=== PATIENT | female | born 1985 | race Caucasian/White ===

== ENCOUNTER 2017-01-07 15:49 | Emergency (ER) | payer OTHER ==
[~2017-01-07] VITALS: Ht 154.9 cm; Wt 61.5 kg
[~2017-01-07 15:49] MED LIST: CEPH-460 PO; IBUP800T23 PO
[2017-01-07 15:51] VITALS: BP 125/86; PULSE 110; RESP 18; TEMP 98.5; O2SAT 98
== END 2017-01-07 16:20 | disposition left against medical advice (07) ==
LOC: NED 15:49
DX: Z03.89 Encounter for observation for other suspected diseases and conditions ruled out (principal)
CPT/HCPCS: 99281

== ENCOUNTER 2017-01-13 23:32 | Emergency (ER) | payer OTHER ==
[2017-01-13 23:55] VITALS: BP 116/76; PULSE 104; RESP 18; TEMP 97.8; O2SAT 98
[2017-01-14] MEDS ORDERED: SODIUM CHLOR 0.9% 1000 ML INJ 1,000 ML IV ONE
[2017-01-14] MEDS ORDERED: HALOPERIDOL LACTATE 5 MG/ML AMP IV ONE (00:15)
[2017-01-14] MEDS ORDERED: LORazepam 2 MG/ML VIAL IV PUSH ONE ×2 (00:15)
[2017-01-14] MEDS ORDERED: diphenhydrAMINE HCL 50 MG/ML VIAL IV PUSH ONE (00:15)
--- NOTE | 2017-01-14 00:16 | PD ---
HPI Chief Complaint: Psychiatric Symptoms Time Seen by Provider: 23:57 Travel History International Travel<30 days: No Contact w/Intl Traveler<30days: No Traveled to known affect area: No History of Present Illness HPI Patient is a 31-year-old female who is brought to the emergency room by police officers after she made suicidal comments. As per police officers, patient was found heavily intoxicated at her home making suicidal threats, Garay act was placed by police officers. Patient is intoxicated in the emergency room, denies active SI or HI. PFSH Past Medical History Medical History: Denies Significant Hx Bipolar Disorder: Yes Diabetes: No Diminished Hearing: No Musculoskeletal: Yes (MILD SCOLIOSIS) Immunizations Current: Yes Migraines: Yes (TAKES EXCEDRIN FOR THEM) ?: Unknown LMP: "TWO WEEKS AGO" : 3 Para: 1 Miscarriage: 1 Past Surgical History Section: Yes Tonsillectomy: Yes Social History Alcohol Use: Yes (OCC) Tobacco Use: Yes (/2 PPD) Substance Use: Yes (MARIJUANA) Allergies-Medications (Allergen,Severity, Reaction): Coded Allergies: No Known Allergies (Verified , 01/13/17) Reported Meds & Prescriptions Reported Meds & Active Scripts Active No Active Prescriptions or Reported Medications Review of Systems ROS Limitations: Intoxication General / Constitutional: No: Fever Eyes: No: Visual changes HENT: No: Headaches Cardiovascular: No: Chest Pain or Discomfort Respiratory: No: Shortness of Breath Gastrointestinal: No: Abdominal Pain Genitourinary: No: Dysuria Musculoskeletal: No: Pain Skin: No Rash Neurologic: No: Weakness Psychiatric: Positive: Depression, Suicidal Ideations, Substance Abuse Endocrine: No: Polydipsia Hematologic/Lymphatic: No: Easy Bruising Physical Exam Narrative GENERAL: No acute distress, nontoxic SKIN: Warm and dry. HEAD: Atraumatic. Normocephalic. EYES: Pupils equal and round. No injection or drainage. NECK: Trachea midline. No JVD. CARDIOVASCULAR: Regular rate and rhythm. No murmur appreciated. RESPIRATORY: No accessory muscle use. Clear to auscultation. Breath sounds equal bilaterally. GASTROINTESTINAL: Abdomen soft, non-tender, nondistended. Hepatic and splenic margins not palpable. MUSCULOSKELETAL: No obvious deformities. No clubbing. No cyanosis. No edema. NEUROLOGICAL: Awake and alert. Normal speech. PSYCHIATRIC: Patient anxious, suicidal, patient combative on exam Data Data Last Documented VS Vital Signs Date Time Temp Pulse Resp B/P Pulse Ox O2 Delivery O2 Flow Rate FiO2 01/13/17 23:55 97.8 104 18 116/76 98 Orders Complete Blood Count With Diff (01/13/17 23:57) Comprehensive Metabolic Panel (01/13/17 23:57) Ed Urine Pregnancytest Poc (01/13/17 23:57) Iv Access Insert/Monitor (01/13/17 23:57) Psych Screen (01/13/17 23:57) Drug Screen, Random Urine (01/13/17 23:57) Alcohol (Ethanol) (01/13/17 23:57) Lorazepam Inj (Ativan Inj) (01/14/17 00:00) Sodium Chlor 0.9% 1000 Ml Inj (Ns 1000 M (01/14/17 00:00) Haloperidol Inj (Haldol Inj) (01/14/17 00:15) Lorazepam Inj (Ativan Inj) (01/14/17 00:15) Diphenhydramine Inj (Benadryl Inj) (01/14/17 00:15) Beta Hcg (Quant/Titer) (01/14/17 00:15) Labs Laboratory Tests Test 01/14/17 00:03 White Blood Count 9.5 TH/MM3 Red Blood Count 4.39 MIL/MM3 Hemoglobin 15.1 GM/DL Hematocrit 42.6 % Mean Corpuscular Volume 97.1 FL Mean Corpuscular Hemoglobin 34.5 PG Mean Corpuscular Hemoglobin 35.5 % Concent Red Cell Distribution Width 13.4 % Platelet Count 279 TH/MM3 Mean Platelet Volume 8.6 FL Neutrophils (%) (Auto) 52.0 % Lymphocytes (%) (Auto) 38.3 % Monocytes (%) (Auto) 6.3 % Eosinophils (%) (Auto) 2.4 % Basophils (%) (Auto) 1.0 % Neutrophils # (Auto) 4.9 TH/MM3 Lymphocytes # (Auto) 3.6 TH/MM3 Monocytes # (Auto) 0.6 TH/MM3 Eosinophils # (Auto) 0.2 TH/MM3 Basophils # (Auto) 0.1 TH/MM3 CBC Comment DIFF FINAL Differential Comment Sodium Level 144 MEQ/L Potassium Level 3.7 MEQ/L Chloride Level 107 MEQ/L Carbon Dioxide Level 23.9 MEQ/L Anion Gap 13 MEQ/L Blood Urea Nitrogen 8 MG/DL Creatinine 0.86 MG/DL Estimat Glomerular Filtration 76 ML/MIN Rate Random Glucose 96 MG/DL Calcium Level 8.8 MG/DL Aspartate Amino Transf 15 U/L (AST/SGOT) Albumin 4.2 GM/DL Urine Opiates Screen NEG Urine Barbiturates Screen NEG Urine Amphetamines Screen NEG Urine Benzodiazepines Screen NEG Urine Cocaine Screen NEG Urine Cannabinoids Screen POS Ethyl Alcohol Level 261 MG/DL MDM Medical Decision Making Medical Screen Exam Complete: Yes Emergency Medical Condition: Yes Interpretation(s) Vital Signs Date Time Temp Pulse Resp B/P Pulse Ox O2 Delivery O2 Flow Rate FiO2 01/13/17 23:55 97.8 104 18 116/76 98 Differential Diagnosis Alcohol intoxication, drug abuse, suicidal idealizations Narrative Course Patient is a 31-year-old female who presents to emergency room Garay act was initiated by police officers. As per police officers, patient made the suicidal comment tonight, reports the patient is heavily intoxicated. Psychiatric screening labs ordered for patient. Patient combative while in the emergency room, patient required sedation with IV medications. Patient responded to IV medications and is currently sleeping. Patient is intoxicated, patient cleared once she is awake and sober Diagnosis Primary Impression: Substance abuse Additional Impressions: Alcohol abuse Suicidal ideation Patient Instructions: General Instructions Additional Instructions: Please stop using drugs Please follow-up with your primary care doctor Return to emergency room as needed Scripts No Active Prescriptions or Reported Meds Farhana Forde DO Jan 14, 2017 00:15
[2017-01-14 00:19] LABS: AUTOMATED NEUTROPHIL # 4.9 TH/MM3 (1.8-7.7); BASOPHIL # 0.1 TH/MM3 (0-0.2); EOSINOPHIL # 0.2 TH/MM3 (0-0.4); EOSINOPHIL % 2.4 % (0.0-4.0); HEMATOCRIT 42.6 % (35.0-46.0); HEMO FLAGS DIFF FINAL; LYMPH % 38.3 % (9.0-44.0); LYMPHOCYTE # 3.6 TH/MM3 (1.0-4.8); MEAN CELL VOLUME 97.1 FL (80.0-100.0); MEAN CORPUSCULAR HEMOGLOBIN 34.5 PG (27.0-34.0); MEAN CORPUSCULAR HGB CONC 35.5 % (32.0-36.0); MONO % 6.3 % (0.0-8.0); PLATELET COUNT 279 TH/MM3 (150-450); RED BLOOD COUNT 4.39 MIL/MM3 (4.00-5.30); RED CELL DISTRIBUTION WIDTH 13.4 % (11.6-17.2); WHITE BLOOD COUNT 9.5 TH/MM3 (4.0-11.0)
[2017-01-14 00:40] LABS: AMPHETAMINE, URINE NEG (NEG); BARBITURATES, URINE NEG (NEG); COCAINE, URINE NEG (NEG)
[2017-01-14 00:42] LABS: ANION GAP 13 MEQ/L (5-15); AST (GOT) 15 U/L (15-37); BICARBONATE 23.9 MEQ/L (21.0-32.0); BLOOD UREA NITROGEN 8 MG/DL (7-18); CHLORIDE 107 MEQ/L (98-107); GLOMERULAR FILTRATION RATE 76 ML/MIN (>89); POTASSIUM 3.7 MEQ/L (3.5-5.1); SODIUM (NA) 144 MEQ/L (136-145)
[2017-01-14 00:45] LABS: ALKALINE PHOSPHATASE 79 U/L (45-117); ALT (GPT) 22 U/L (10-53); TOTAL BILIRUBIN ADULT 0.2 MG/DL (0.2-1.0)
[2017-01-14 01:14] LABS: BETA HCG QUANT LESS THAN 1 MIU/ML (0-5)
[2017-01-14 06:20] VITALS: BP 119/82; PULSE 80; RESP 17; O2SAT 98
[2017-01-14 10:53] VITALS: BP 94/61; PULSE 77; RESP 18; O2SAT 97
== END 2017-01-14 14:26 ==
LOC: NEPA 23:32 → NEPJ 01-14 14:26
DX: F19.10 Other psychoactive substance abuse, uncomplicated (principal); F10.129 Alcohol abuse with intoxication, unspecified; R45.851 Suicidal ideations; F12.10 Cannabis abuse, uncomplicated; F17.210 Nicotine dependence, cigarettes, uncomplicated
CPT/HCPCS: 80053; 80307; 84702; 84703; 85025; 96374; 96375; 99284; J1200; J1630; J2060; J7030

== ENCOUNTER 2017-06-30 00:22 | Emergency (ER) | payer OTHER ==
[~2017-06-30] VITALS: Ht 154.9 cm; Wt 62.1 kg
[2017-06-30 00:28] VITALS: BP 126/67; PULSE 97; RESP 16; TEMP 98.5; O2SAT 99
[2017-06-30] MEDS ORDERED: TOBR.3%O LEFT EYE (21:30)
== END 2017-06-30 01:38 | disposition left against medical advice (07) ==
LOC: PHED 00:22
DX: H57.12 Ocular pain, left eye (principal)
CPT/HCPCS: 99281

== ENCOUNTER 2017-06-30 20:34 | Emergency (ER) | payer SELFPAY ==
[~2017-06-30] VITALS: Ht 165.1 cm; Wt 61.4 kg
[2017-06-30 20:41] VITALS: BP 123/65; PULSE 97; RESP 16; TEMP 98.7; O2SAT 98
[2017-06-30 21:09] VITALS: BP 123/87; PULSE 91; RESP 16; O2SAT 100
[2017-06-30] MEDS ORDERED: TOBRAMYCIN SULFATE 0.3% OPTH OINT 3.5 GM TUBE EACH EYE ONE ×2 (21:30→21:45)
[2017-06-30] MEDS ORDERED: TOBR.3%O LEFT EYE (21:30)
--- NOTE | 2017-06-30 21:32 | PD ---
HPI Chief Complaint: Eye Problems/Injury Time Seen by Provider: 21:24 Travel History International Travel<30 days: No Contact w/Intl Traveler<30days: No Traveled to known affect area: No History of Present Illness HPI The patient is a 32-year-old female that complains of redness in the left eye that started 3 days ago and redness in the right eye that started last night and a slight burning/itching discomfort in both eyes. She denies any trauma, exposure to welding and does not have a foreign body sensation in either eye. PFSH Past Medical History Bipolar Disorder: Yes Diabetes: No Diminished Hearing: No Musculoskeletal: Yes (MILD SCOLIOSIS) Immunizations Current: Yes Migraines: Yes (TAKES EXCEDRIN FOR THEM) ?: Not : 3 Para: 1 Miscarriage: 1 Past Surgical History Section: Yes Tonsillectomy: Yes Social History Alcohol Use: Yes (3-4 drinks daily) Tobacco Use: Yes (1/2 PPD) Substance Use: Yes (MARIJUANA) Allergies-Medications (Allergen,Severity, Reaction): Coded Allergies: No Known Allergies (Verified , 06/30/17) Reported Meds & Prescriptions Reported Meds & Active Scripts Active No Active Prescriptions or Reported Medications Review of Systems Except as stated in HPI: all other systems reviewed are Neg Physical Exam Narrative GENERAL: The patient is alert, oriented 3 in slight apparent distress with a bilateral eye redness/discomfort. Her vital signs are normal. SKIN: Focused skin assessment warm/dry. HEAD: Atraumatic. Normocephalic. EYES: Pupils equal and round. No scleral icterus. The left eye shows considerable injection with clear drainage. The right eye shows slight injection with clear drainage. Visual acuity is 20/30 in the right eye and 20/ 50 in the left eye. For seen staining reveals no corneal uptake. No foreign body is noted. ENT: No nasal bleeding or discharge. Mucous membranes pink and moist. NECK: Trachea midline. No JVD. CARDIOVASCULAR: Regular rate and rhythm. No murmur appreciated. RESPIRATORY: No accessory muscle use. Clear to auscultation. Breath sounds equal bilaterally. GASTROINTESTINAL: Abdomen soft, non-tender, nondistended. Hepatic and splenic margins not palpable. MUSCULOSKELETAL: No obvious deformities. No clubbing. No cyanosis. No edema. NEUROLOGICAL: Awake and alert. No obvious cranial nerve deficits. Motor grossly within normal limits. Normal speech. PSYCHIATRIC: Appropriate mood and affect; insight and judgment normal. Data Data Last Documented VS Vital Signs Date Time Temp Pulse Resp B/P (MAP) Pulse Ox O2 Delivery O2 Flow Rate FiO2 06/30/17 21:09 16 06/30/17 21:09 91 123/87 (99) 100 Room Air 06/30/17 20:41 98.7 MDM Medical Decision Making Medical Screen Exam Complete: Yes Emergency Medical Condition: Yes Medical Record Reviewed: Yes Differential Diagnosis Conjunctivitis, iritis-highly unlikely, corneal abrasion, foreign body in eye- highly unlikely Narrative Course The patient has conjunctivitis. This is likely viral but we will give the patient Tobrex ointment for the possibility of bacterial infection. Warm compresses should be used 4 times daily followed by saline irrigation and then the ointment. 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 Diagnosis Primary Impression: Conjunctivitis Additional Instructions: Use warm compresses 4 times daily followed by irrigation of both eyes with the saline pledgets and then apply the ointment 4 times daily in both eyes. This takes about 5-7 days to resolve and, if worse or not better, you should follow- up with an design engineer agricultural equipment Med/Other Pt SpecificInfo: Prescription(s) given Scripts Tobramycin Opth Oint (Tobrex Opth Oint) 0.3 % Oint 1 APPLIC LEFT EYE QID for Infection, #1 TUBE 0 Refills Prov: Wilber Carmona MD 06/30/17 Disposition: 01 DISCHARGE HOME Condition: Stable Wilber Carmona MD Jun 30, 2017 21:32
[2017-06-30 22:18] VITALS: BP 125/86
== END 2017-06-30 22:45 | disposition home or self-care (01) ==
LOC: PHED 20:34
DX: H10.9 Unspecified conjunctivitis (principal)
CPT/HCPCS: 99283

== ENCOUNTER 2017-08-11 19:33 | Emergency (ER) | payer SELFPAY ==
[~2017-08-11] VITALS: Ht 154.9 cm; Wt 59.1 kg
[~2017-08-11 19:33] MED LIST changes: -CEPH-460 PO; -IBUP800T23 PO; +TOBR.3%O LEFT EYE
[2017-08-11 19:39] VITALS: BP 127/65; PULSE 90; RESP 18; TEMP 98.9; O2SAT 98
--- NOTE | 2017-08-11 20:14 | PD ---
HPI Chief Complaint: Musculoskeletal Complaint Time Seen by Provider: 19:59 Travel History International Travel<30 days: No Contact w/Intl Traveler<30days: No Traveled to known affect area: No History of Present Illness HPI 32-year-old female presents to the emergency room for evaluation of left knee pain and swelling after falling earlier today. Patient tripped down 3 stairs and landed directly on her left knee on concrete. She had immediate pain. She has been able to ambulate but with significant pain. Denies any other injuries. She did not hit her head or pass out. She took Aleve this morning ibuprofen this afternoon and it did not improve her symptoms. Patient denies distal paresthesias. No chronic medical conditions or daily medications. PFSH Past Medical History Bipolar Disorder: Yes Diabetes: No Diminished Hearing: No Musculoskeletal: Yes (MILD SCOLIOSIS) Immunizations Current: Yes Migraines: Yes (TAKES EXCEDRIN FOR THEM) Tetanus Vaccination: < 5 Years Influenza Vaccination: No ?: Not LMP: 07/29/17 : 3 Para: 1 Miscarriage: 1 Past Surgical History Section: Yes Tonsillectomy: Yes Social History Alcohol Use: Yes (3-4 drinks daily) Tobacco Use: Yes (1/2 PPD) Substance Use: Yes (MARIJUANA) Allergies-Medications (Allergen,Severity, Reaction): Coded Allergies: No Known Allergies (Verified , 06/30/17) Reported Meds & Prescriptions Reported Meds & Active Scripts Active Tobrex Opth Oint (Tobramycin Sulfate) 0.3 % Oint 1 Applic LEFT EYE QID Review of Systems Except as stated in HPI: all other systems reviewed are Neg Physical Exam Narrative GENERAL: Well-nourished, well-developed female in no acute distress. Afebrile. Ambulatory with a limp. SKIN: Focused skin assessment warm/dry. Superficial abrasion and mild ecchymosis of the left anterior knee. HEAD: Normocephalic. EYES: No scleral icterus. No injection or drainage. NECK: Supple, trachea midline. No JVD or lymphadenopathy. CARDIOVASCULAR: Regular rate and rhythm without murmurs, gallops, or rubs. RESPIRATORY: Breath sounds equal bilaterally. No accessory muscle use. MUSCULOSKELETAL: No cyanosis. 2+ dorsalis pedis pulse. Obvious, large effusion of the left knee. No bony tenderness to palpation. Patient can almost fully extend and flex the knee to approximately 90. Data Data Last Documented VS Vital Signs Date Time Temp Pulse Resp B/P (MAP) Pulse Ox O2 Delivery O2 Flow Rate FiO2 08/11/17 19:39 98.9 90 18 127/65 (85) 98 Orders Orders Knee, Complete (4vws) (08/11/17 ) Boy Bandage (08/11/17 22:29) Crutches (08/11/17 22:29) MDM Medical Decision Making Medical Screen Exam Complete: Yes Emergency Medical Condition: Yes Medical Record Reviewed: Yes Differential Diagnosis Effusion, contusion, internal derangement, fracture Narrative Course 32-year-old female presents to the emergency room for evaluation of left knee pain and swelling after falling earlier today. Patient fell down 3 stairs and landed on her left knee directly on concrete. Denies any other significant injuries. Left lower extremity is neurovascularly intact with 2+ dorsalis pedis pulse. Limited range of motion secondary to pain. No bony tenderness to palpation. Pain is localized to the medial aspect. X-ray shows a large effusion. Patient was placed in a tight Boy wrap and discharged with crutches and orthopedic instructions. Told to follow-up with primary care physician or return for worsening symptoms. She understands and agrees to plan. Diagnosis Primary Impression: Knee effusion, left Referrals: Primary Care Physician Additional Instructions: Rest and drink plenty of fluids. Keep wrapped and elevate above heart. Take ibuprofen with food as directed, as needed for pain. Apply ice to the affected area for 20 minutes at a time, as needed for pain and swelling. Follow-up with a primary care physician. Return to the emergency room for worsening symptoms. Disposition: 01 DISCHARGE HOME Condition: Stable Sheeba Rosa Aug 11, 2017 20:14
--- NOTE | 2017-08-11 22:17 | RADRPT ---
EXAM DATE/TIME: 08/11/2017 21:05 [facility] COMPARISON: No previous studies available for comparison. INDICATIONS : Left knee pain and swelling since falling this morning. MEDICAL HISTORY : None. SURGICAL HISTORY : None. ENCOUNTER: Initial ACUITY: 1 day PAIN SCORE: 8/10 LOCATION: Left anterior knee. FINDINGS: No fracture is seen. There is a moderate to large effusion. The knee joint is normally aligned. CONCLUSION: Moderate to large effusion. Joel Wyatt MD on August 11, 2017 at 22:14 Board Certified Radiologist. This report was verified electronically.
== END 2017-08-11 22:45 | disposition home or self-care (01) ==
LOC: PHEFT 19:33
DX: M25.562 Pain in left knee (principal)
CPT/HCPCS: 73564; 99283; E0113

== ENCOUNTER 2017-08-14 10:59 | Emergency (ER) | payer SELFPAY ==
[~2017-08-14] VITALS: Ht 154.9 cm; Wt 61.0 kg
[2017-08-14 11:07] VITALS: BP 137/63; PULSE 73; RESP 18; TEMP 97.9
[2017-08-14] MEDS ORDERED: IBUP800T23 PO (11:46)
--- NOTE | 2017-08-14 11:48 | PD ---
HPI . Left knee pain Chief Complaint: Injury Time Seen by Provider: 11:36 Travel History International Travel<30 days: No Contact w/Intl Traveler<30days: No Traveled to known affect area: No History of Present Illness HPI 32-year-old female presents to the emergency department for evaluation of left knee pain. Patient was seen here at our facility 3 days ago after she fell on the knee. Patient was discharged home with an Boy wrap and crutches. Patient reports that the pain is improving and the swelling is decreased but she feels she is not able to return to work yet. Patient states she works at a [employer] and has to stand all day while working. Patient was ambulatory from triage to her medical room. Patient was carrying the crutches at that time. Patient has the Boy wrap in her purse that it is not on her knee at this time. Patient would like a work note to go back to work on Thursday. Patient reports no other physiological problems. No fevers, chills, malaise, chest pain, shortness of breath, lightheadedness, cyanosis or edema. PFSH Past Medical History Bipolar Disorder: Yes Diabetes: No Diminished Hearing: No Musculoskeletal: Yes (MILD SCOLIOSIS) Immunizations Current: Yes Migraines: Yes (TAKES EXCEDRIN FOR THEM) ?: Not LMP: Jul : 3 Para: 1 Miscarriage: 1 Past Surgical History Section: Yes Tonsillectomy: Yes Social History Alcohol Use: Yes (3-4 drinks daily) Tobacco Use: Yes (1/2 PPD) Substance Use: Yes (MARIJUANA) Allergies-Medications (Allergen,Severity, Reaction): Coded Allergies: No Known Allergies (Verified , 08/14/17) Reported Meds & Prescriptions Reported Meds & Active Scripts Active No Active Prescriptions or Reported Medications Review of Systems Except as stated in HPI: all other systems reviewed are Neg Physical Exam Narrative GENERAL: Well-nourished, well-developed 32-year-old female patient in no acute distress. SKIN: Focused skin assessment warm/dry. HEAD: Normocephalic. Atraumatic EYES: No scleral icterus. No injection or drainage. NECK: Supple, trachea midline. No JVD or lymphadenopathy. CARDIOVASCULAR: Regular rate and rhythm without murmurs, gallops, or rubs. 2+ pedal pulses bilaterally. RESPIRATORY: Breath sounds equal bilaterally. No accessory muscle use. GASTROINTESTINAL: Abdomen soft, non-tender, nondistended. MUSCULOSKELETAL: Left knee mildly edematous, no cyanosis, no ecchymosis. Left knee retains full range of motion with flexion and extension. Bilateral lower extremities neurovascularly intact. BACK: Nontender without obvious deformity. No CVA tenderness. Data Data Last Documented VS Vital Signs Date Time Temp Pulse Resp B/P (MAP) Pulse Ox O2 Delivery O2 Flow Rate FiO2 08/14/17 11:07 97.9 73 18 137/63 (87) MDM Medical Decision Making Medical Screen Exam Complete: Yes Emergency Medical Condition: Yes Differential Diagnosis Differential diagnoses include but not limited to knee contusion, knee sprain, patellar fracture, patellar dislocation Narrative Course 32-year-old female patient presents emergency department for evaluation of left knee pain that she sustained after falling 3 days ago. Patient was seen at our facility and evaluated at that time. Patient was discharged with Boy wrap and crutches. Patient states she does not know who her primary care doctor is and cannot follow up with them. Patient states even though the pain is improving she feels like she is still not able to work. Patient requests a work note to go back to work on Thursday and a prescription for ibuprofen. Patient will be discharged home with work note and Motrin prescription. Diagnosis Primary Impression: Knee pain, left Qualified Codes: M25.562 - Pain in left knee Referrals: Primary Care Physician Patient Instructions: General Instructions, Knee Pain (ED) Departure Forms: Tests/Procedures, Work Release Enter return to work date: Aug 17, 2017 Additional Instructions: Please return to emergency department if your symptoms return or worsen. Follow up with your primary care provider. Take medications as prescribed. Use Boy wrap, ice packs, elevation when resting and crutches until pain resolves. Med/Other Pt SpecificInfo: Prescription(s) given Scripts Ibuprofen (Ibuprofen) 800 Mg Tab 800 MG PO Q8H Y for Pain/Inflammation, #60 TAB 0 Refills Prov: Sherry Olvera Renetta NOLAND 08/14/17 Disposition: 01 DISCHARGE HOME Condition: Stable Wade,Sherry NOLAND Aug 14, 2017 11:48
== END 2017-08-14 12:08 | disposition home or self-care (01) ==
LOC: PHED 10:59
DX: M25.562 Pain in left knee (principal); F31.9 Bipolar disorder, unspecified; M41.9 Scoliosis, unspecified; F17.200 Nicotine dependence, unspecified, uncomplicated
CPT/HCPCS: 99283

== ENCOUNTER 2018-06-04 21:41 | Observation (INO) ==
[2018-06-04] MEDS ORDERED: Sod Chloride 0.9% Inj 1,000 ML IV.SIG ONE ×2 (21:59→22:35)
[2018-06-04] MEDS ORDERED: Morphine Inj 4 MG/ML Vial IV.PUSH ONE (21:59)
--- NOTE | 2018-06-04 22:06 | ED ---
HPI General Chief complaint: Vaginal Bleeding Stated complaint: abd pain/8weeks preg Time Seen by Provider: 06/04/18 21:59 Source: patient Mode of arrival: ambulatory Limitations: no limitations History of Present Illness HPI Narrative: Patient comes in complaining stating that she is approximately 8 weeks by gestation time/date. She is a and has had one miscarriage. She states she is O- blood type and that she received a RhoGam 2 weeks ago when she was evaluated here in the emergency department. Patient stated that ever since then she has continued to have various level of bleeding for which she presumed she was having a miscarriage. Complaint: vaginal bleeding Onset (ago): week(s) (2) Female Urogenital Radiation: Non-Radiating Severity: moderate Severity scale (1-10): 8 Quality: Cramping and Sharp Duration: constant Relieving factors: none Exacerbating factors: none Vaginal discharge: blood Sexual activity: No Related Data Home Medications Medication Instructions Recorded Confirmed Acetaminophen Extra Strength 1,000 PO Q4H PRN 06/04/18 ibuprofen 600 mg PO TID PRN 06/04/18 06/04/18 Allergies Allergy/AdvReac Type Severity Reaction Status Date / Time No Known Allergies Allergy Verified 05/14/18 14:25 Review of Systems Except as stated in HPI: all other systems reviewed are negative PMFSH History History Provided By: Patient Medical History Medical History Delivery by section at 37-39 weeks of gestation due to labor (Acute) Surgical History Surgical History Hx of tonsillectomy (Acute) Social History Social History Substance History: Active Abuse Second Hand Smoke Exposure: No Smoking Status: Current every day smoker Tobacco Type: Cigarettes How Often Do You Have a Drink Containing Alcohol: 4 or more times a week Exam Narrative Exam Narrative: GENERAL: Well-nourished, well-developed patient in no apparent distress. SKIN: Warm and dry. HEAD: Atraumatic. Normocephalic. EYES: Pupils equal and round. No scleral icterus. No injection or drainage. ENT: No nasal bleeding or discharge. Mucous membranes pink and moist. NECK: Trachea midline. No JVD. CARDIOVASCULAR: Regular rate and rhythm. no rubs or gallops RESPIRATORY: No accessory muscle use. Clear to auscultation. Breath sounds equal bilaterally. GASTROINTESTINAL: Abdomen soft, nondistended. No rebound or guarding... Tenderness to percussion over suprapubic region MUSCULOSKELETAL: Extremities without clubbing, cyanosis, or edema. No obvious deformities. NEUROLOGICAL: Awake and alert. No obvious cranial nerve deficits. Motor grossly within normal limits. Five out of 5 muscle strength in the arms and legs. Normal speech. PSYCHIATRIC: Appropriate mood and affect; insight and judgment normal. Course Initial Documented Vital Signs Temperature 97.6 F 06/04/18 21:47 Pulse Rate 83 06/04/18 21:47 Blood Pressure 128/59 L 06/04/18 21:47 Pulse Oximetry 100 06/04/18 21:47 Last Documented Vital Signs Temperature 97.6 F 06/04/18 21:47 Pulse Rate 73 06/04/18 22:55 Respiratory Rate 18 06/05/18 00:18 Blood Pressure 115/66 06/04/18 22:55 Pulse Oximetry 97 06/04/18 22:55 Critical Care Time Critical Care Time: Yes Total Critical Care Time: 45 Attestation: Aggregate critical care time was 45 minutes minutes. Time to perform other separately billable procedures was not included in the critical care time. My time did not include minutes spent treating any other patients simultaneously or on activities that did not directly contribute to the patient's treatment. The services I provided to this patient were to treat and/or prevent clinically significant deterioration that could result in: [Without prompt intervention this patient may develop sepsis resulting in septic shock and , as well as alloimmunization and future miscarriages] I provided critical care services requiring my management, as noted below: Chart data review, documentation time, medication orders and management, vital sign assessments/reviewing monitor data, ordering and reviewing lab tests, ordering and interpreting/reviewing x-rays and diagnostic studies, care of the patient and discussion of the patient with the admitting physicians. Medical Decision Making MDM Narrative Medical decision making narrative: Electrolytes are all within normal limits, repeat quantitative hCG 6928 which is considerably lower than the 23,295 or so hCG level back to May 14....first poc ultrasound by dr ramos showed crl of [id number], no fht. due to leukocytosis with neutrophilia suspect endometritis from RPOC, iv levaquin and flagyl given here, along with 2l ivf ns, as well as additional pain medication since morphine 4mg did not resolve or help much at first. dilaudid and toradol 15mg iv x1 controlled the pain much better. discussed case fully with dr tena nut culler, who recc admission, iv hydration, aggressive pain control, formal ultrasound, iv abx, and cytotech...she will follow. d/w dr figueroa from medicine who declined admission to medicine team as it is primary nut culler, this was d/w dr tena who graciously admitted to her service. Differential Diagnosis Differential Diagnosis: UTI versus ectopic versus incomplete AB versus AB versus threatened AB Medical Records Medical records reviewed: Yes I reviewed the patient's medical records. Of note on chart review it is confirmed that the patient had a beta hCG quantitative of 23,285.... O- blood type. Lab Data Result diagrams: 06/04/18 22:10 06/04/18 22:10 Lab Results 06/04/18 06/04/18 06/04/18 Range/Units 22:10 22:10 22:32 CBC w Diff Slide review pending WBC 22.1 H (4.0-11.0) th/mm3 RBC 3.73 L (4.00-5.30) mil/mm3 Hgb 12.6 (11.6-15.3) gm/dL Hct 36.0 (35.0-46.0) % MCV 96.5 (80.0-100.0) fL MCH 33.8 (27.0-34.0) pg MCHC 35.0 (32.0-36.0) % RDW 12.5 (11.6-17.2) % Plt Count 269 (150-450) th/mm3 MPV 9.0 (7.0-11.0) fL Neut % (Auto) 88.1 H (16.0-70.0) % Lymph % (Auto) 9.3 (9.0-44.0) % [place] % (Auto) 1.6 (0.0-8.0) % Eos % (Auto) 0.2 (0.0-4.0) % Baso % (Auto) 0.8 (0.0-2.0) % Neut # (Auto) 19.4 H (1.8-7.7) th/mm3 Lymph # (Auto) 2.1 (1.0-4.8) th/mm3 [place] # (Auto) 0.4 (0.0-0.9) th/mm3 Eos # (Auto) 0.0 (0.0-0.4) th/mm3 Baso # (Auto) 0.2 (0.0-0.2) th/mm3 WBC Differential . Diff Scan Auto diff confirmed Differential Comment . Sodium 140 (136-145) meq/L Potassium 3.3 L (3.5-5.1) meq/L Chloride 108 H (98-107) meq/L Carbon Dioxide 22.1 (21.0-32.0) meq/L Anion Gap 10 (5-15) meq/L BUN 6 L (7-18) mg/dL Creatinine 0.68 (0.50-1.00) mg/dL Estimated GFR Greater than 89 (>89) mL/min Random Glucose 98 (74-106) mg/dL Calcium 8.6 (8.5-10.1) mg/dL Beta HCG, Quant 6928 H (0-5) mIU/mL Urine Color Yellow (Yellw/Straw) Urine Clarity Slightly cloudy (Clear) Urine pH 7.0 (5.0-8.5) Ur Specific [place] 1.015 (1.002-1.035) Urine Protein Trace (Neg-Trace) mg/dL Urine Glucose (UA) Negative (Negative) mg/dL Urine Ketones 40 H (Negative) mg/dL Urine Occult Blood Trace (Negative) Urine Nitrate Negative (Negative) Urine Bilirubin Negative (Negative) Urine Urobilinogen 0.2 (Less than 2) mg/dL Ur Leukocyte Esterase Negative (Negative) Urine RBC 0-3 (0-3) /hpf Urine WBC 0-5 (0-5) /hpf Ur Squamous Epith Cells 0-5 (0-5) /hpf Urine Mucus Many H (Occasional) /lpf Micro UA Comment Culture not ind Urine Culture Comments Culture not ind Discharge Plan Discharge Disposition Patient Disposition: 30 Still Patient Discharge Condition Condition: Stable Discharge Details Diagnosis: Incomplete , Retained products of conception, Leukocytosis Physicians Team ED Provider: Krunal Higgins Primary Care Provider: Primary Care Windy Collado Attending Provider: Prateek Cantrell ED Status: Admitted Observation Patient
[2018-06-04 22:28] LABS: Chloride 108 meq/L (98-107); Potassium 3.3 meq/L (3.5-5.1); Sodium 140 meq/L (136-145)
[2018-06-04 22:31] LABS: Anion Gap 10 meq/L (5-15); Blood Urea Nitrogen 6 mg/dL (7-18); Calcium 8.6 mg/dL (8.5-10.1); Carbon Dioxide 22.1 meq/L (21.0-32.0); Glucose,Random 98 mg/dL (74-106)
[2018-06-04 22:35] LABS: Glomerular Filtration Rate Greater Than 89 mL/min (>89)
[2018-06-04] MEDS ORDERED: HYDROmorphone PF Inj 1 MG/ML Ampul IV.PUSH ONE (22:35)
[2018-06-04 22:52] LABS: Beta HCG,Quantitative 6928 mIU/mL (0-5)
[2018-06-04] MEDS ORDERED: HYDROmorphone PF Inj 2 MG/ML Vial IV.PUSH ONE (23:00)
[2018-06-04 23:11] LABS: Bilirubin,Urine Negative (Negative); Clarity,Urine Slightly Cloudy (Clear); Color,Urine Yellow (Yellw/Straw); Glucose,Urine (UA) Negative (Negative); Leukocyte Esterase,Urine Negative (Negative); Nitrite,Urine Negative (Negative); Specific Gravity,Urine 1.015 (1.002-1.035); Urobilinogen,Urine 0.2 mg/dL (Less than 2)
[2018-06-04 23:13] LABS: Baso # (Auto) 0.2 th/mm3 (0.0-0.2); Baso % (Auto) 0.8 % (0.0-2.0); Eos % (Auto) 0.2 % (0.0-4.0); Hemoglobin 12.6 gm/dL (11.6-15.3); Lymph # (Auto) 2.1 th/mm3 (1.0-4.8); Lymph % (Auto) 9.3 % (9.0-44.0); Mean Corpuscular Hemoglobin 33.8 pg (27.0-34.0); Mean Corpuscular Volume 96.5 fL (80.0-100.0); Mono # (Auto) 0.4 th/mm3 (0.0-0.9); Mono % (Auto) 1.6 % (0.0-8.0); Neut # (Auto) 19.4 th/mm3 (1.8-7.7); Neut % (Auto) 88.1 % (16.0-70.0); Platelet Count 269 th/mm3 (150-450); Red Blood Count 3.73 mil/mm3 (4.00-5.30); Red Cell Distribution Width 12.5 % (11.6-17.2); White Blood Count 22.1 th/mm3 (4.0-11.0)
[2018-06-04 23:17] LABS: Mucus,Urine Many /lpf (Occasional); RBC,Urine 0-3 /hpf (0-3); Squamous Epithelial Cell,Urine 0-5 /hpf (0-5); WBC,Urine 0-5 /hpf (0-5)
[2018-06-04] MEDS ORDERED: Ketorolac Inj 30 MG/ML (IVP) Vial IV.PUSH ONE (23:26)
[2018-06-05] MEDS ORDERED: Sod Chloride 0.9% Inj 1,000 ML IV.SIG ONE (00:13)
[2018-06-05] MEDS ORDERED: ALPRAZolam 0.25 MG Tablet PO PRN (00:20)
--- NOTE | 2018-06-05 00:30 | P.CONOB ---
History of Present Illness - Data of Consult Consult date: 06/04/18 Primary Care Provider: No Primary Care Physician Family Provider: No Primary Care Physician - Consult Narrative Reason for consult: vaginal bleeding, pelvic pain, other (incomplete at 6+ weeks) Narrative: Amy Balderas is a 33 year old female with suspected incomplete around 8 weeks by bedside US. PMFSH - History History Provided By: Patient - Medical History Medical History: Medical History (Last Reviewed 06/04/18 @ 22:03 by Krunal Higgins) Delivery by section at 37-39 weeks of gestation due to labor (Acute) - Surgical History Surgical History: Surgical History (Last Reviewed 06/04/18 @ 22:03 by Krunal Higgins) Hx of tonsillectomy (Acute) - Tobacco History Second Hand Smoke Exposure: No Tobacco Use In Past 30 Days: Yes Smoking Status: Current every day smoker Tobacco Type: Cigarettes - Alcohol History How Often Do You Have a Drink Containing Alcohol: 4 or more times a week - Substance Use History Substance History: Active Abuse - Substance Use Type Marijuana Status: Active - Immunization History Tetanus Immunization: Unsure Hx Influenza Vaccine This Season: No Medications and Allergies Active Medications: Active Medications Alprazolam (Xanax) 0.25 mg PO Q6HR PRN PRN Reason: ANXIETY Levofloxacin/Dextrose (Levaquin 750 Mg Premix Inj) 150 mls @ 100 mls/hr IV.SIG ONCE ONE Stop: 06/05/18 00:52 Last Admin: 06/04/18 23:37 Dose: 100 mls/hr Sodium Chloride (Ns Inj) 1,000 mls @ 125 mls/hr IV.CONT .Q8H ZORAIDA Misoprostol (Cytotec) 200 mcg PO QID ZORAIDA Morphine Sulfate (*Morphine Inj Periprocedure Only) 5 mg IV.PUSH Q4HR PRN PRN Reason: BREAKTHROUGH PAIN Oxycodone/Acetaminophen (Percocet 7.5/325 Mg) 2 tab PO Q4H PRN PRN Reason: PAIN SCALE 6-10 OR SEVERE SOB Oxycodone/Acetaminophen (Percocet 7.5/325 Mg) 1 tab PO Q4H PRN PRN Reason: pains scale 1-5 Sodium Chloride (Ns Flush) 2 ml IV.FLUSH PRN PRN PRN Reason: FLUSH AFTER USING IV ACCESS Sodium Chloride (Ns Flush) 2 ml IV.FLUSH PRN PRN PRN Reason: FLUSH AFTER USING IV ACCESS Zolpidem Tartrate (Ambien) 10 mg PO ONCE ONE Stop: 06/05/18 00:22 Allergies Allergy/AdvReac Type Severity Reaction Status Date / Time No Known Allergies Allergy Verified 05/14/18 14:25 Home Medications Medication Instructions Recorded Confirmed Type ibuprofen 600 mg PO TID PRN 06/04/18 06/04/18 History Physical Exam Vital signs: Temp Pulse Resp BP Pulse Ox 97.6 F 77 16 105/64 100 06/04/18 21:47 06/05/18 00:24 06/05/18 00:24 06/05/18 00:24 06/05/18 00:24 Results - Labs CBC & Chem 7: 06/05/18 07:27 06/05/18 07:27 Labs: Short CBC 06/04/18 Range/Units 22:10 WBC 22.1 H (4.0-11.0) th/mm3 Hgb 12.6 (11.6-15.3) gm/dL Hct 36.0 (35.0-46.0) % Plt Count 269 (150-450) th/mm3 BMP 06/04/18 22:10 Sodium 140 Potassium 3.3 L Chloride 108 H Carbon Dioxide 22.1 BUN 6 L Creatinine 0.68 Calcium 8.6 Urine 06/04/18 Range/Units 22:32 Urine Color Yellow (Yellw/Straw) Urine Clarity Slightly cloudy (Clear) Urine pH 7.0 (5.0-8.5) Ur Specific [place] 1.015 (1.002-1.035) Urine Protein Trace (Neg-Trace) mg/dL Urine Glucose (UA) Negative (Negative) mg/dL Assessment and Plan - Assessment (1) Incomplete Code(s): O03.4 - Incomplete spontaneous without complication Status: Suspected - Plan 1. RH negative -- the patient has received Rhogam 2. requested a formal TV US 3. will follow up her progress 4. plan to see patient in the office for follow up
[2018-06-05] MEDS ORDERED: Morphine Sulfate Inj 8 MG/ML Vial IV.PUSH PRN (00:45)
[2018-06-05] MEDS ORDERED: Zolpidem Tartrate 5 MG Tablet PO ONE (00:45)
--- NOTE | 2018-06-05 01:59 | US ---
EXAM DATE: 06/05/2018 1:31 AM EDT AGE/SEX: 33 years / Female INDICATIONS: Vaginal bleeding x 3 weeks. CLINICAL DATA: This is the patient's initial encounter. Patient reports that signs and symptoms have been present for 2 weeks and indicates a pain score of 8/10. MEDICAL/SURGICAL HISTORY: . section. Tonsillectomy. COMPARISON: [facility], CT ABDOMEN & PELVIS W/O CONTRAST, 07/06/2013. . TECHNIQUE: Real-time ultrasound of the pelvis was performed using an endovaginal transducer. BHC,928 MEASUREMENTS: Uterus:__13.9 x 6.5 x 5.2 cm Endometrial Stripe:__16 mm Right Ovary:__ 4.4 x 2.3 x 2.3 cm Left Ovary:__ 3.6 x 3.2 x 1.8 cm FINDINGS: Uterus: No definite intrauterine gestational sac. Complex endometrial mobile collection measuring 4. 5 cm extending towards the lower uterine segment. The definite pole or yolk sac. Right Ovary: Ovary contains no mass. Follicles are present. Left Ovary: Ovary contains no mass. Follicles are present. Other: None. CONCLUSION: 1. No definite intrauterine gestational sac. 2. Complex 4.5 cm endometrial collection extending towards the lower uterine segment which may refle ct hematoma. Electronically signed by: Neptali Turner MD 06/05/2018 1:58 AM EDT
[2018-06-05] MEDS: Sod Chloride 0.9% Inj 1,000 ML IV.CONT SCH ×2 (02:22→08:33)
[2018-06-05] MEDS: miSOPROStol 200 MCG Tablet PO SCH ×3 (02:44→12:33)
[2018-06-05 08:04] LABS: Baso % (Auto) 0.2 % (0.0-2.0); Eos # (Auto) 0.1 th/mm3 (0.0-0.4); Eos % (Auto) 0.5 % (0.0-4.0); Hematocrit 32.9 % (35.0-46.0); Lymph # (Auto) 2.6 th/mm3 (1.0-4.8); Lymph % (Auto) 16.8 % (9.0-44.0); Mean Corpuscular HGB Conc 33.3 % (32.0-36.0); Mean Corpuscular Hemoglobin 33.1 pg (27.0-34.0); Mean Corpuscular Volume 99.4 fL (80.0-100.0); Mean Platelet Volume 8.5 fL (7.0-11.0); Mono # (Auto) 0.7 th/mm3 (0.0-0.9); Mono % (Auto) 4.3 % (0.0-8.0); Neut # (Auto) 11.8 th/mm3 (1.8-7.7); Neut % (Auto) 78.2 % (16.0-70.0); Platelet Count 197 th/mm3 (150-450); Red Blood Count 3.31 mil/mm3 (4.00-5.30); Red Cell Distribution Width 12.2 % (11.6-17.2); White Blood Count 15.2 th/mm3 (4.0-11.0)
[2018-06-05 08:07] LABS: Chloride 108 meq/L (98-107); Potassium 3.6 meq/L (3.5-5.1); Sodium 139 meq/L (136-145)
[2018-06-05 08:22] LABS: Anion Gap 8 meq/L (5-15); Blood Urea Nitrogen 4 mg/dL (7-18); Calcium 7.6 mg/dL (8.5-10.1); Carbon Dioxide 23.5 meq/L (21.0-32.0); Glomerular Filtration Rate Greater Than 89 mL/min (>89); Glucose,Random 93 mg/dL (74-106)
--- NOTE | 2018-06-05 09:18 | P.PNOB ---
Progress Note: A/P (1) Incomplete Status: Resolved Code(s): O03.4 - Incomplete spontaneous without complication - Plan 1. discussed HAND [employer] US findings -- no retained products of conception, blood clot noted in lower segment/cervix 2. discussed need for f/up in the office 3. patient is attempting 4. Rhogam was given 5. will continue with a couple more doses of antibiotics PO and will then send her home with Rxs 6. answered patient's questions; she verbalized understanding and agreement to the treatment plan - Time Spent With Patient Total time spent is greater than 50% in coordination of care (as documented) at patient's floor/unit and/or counseling patient: 25 - 35 minutes Subjective Interval history: Patient is sleeping in bed with her . She reports cramping but feels overall "much better". Patient states that her bleeding "is almost gone". She is taking PNVs; is attempting . Physical Exam Vital signs: Temp Pulse Resp BP Pulse Ox 96.9 F L 69 20 101/78 98 06/05/18 05:19 06/05/18 05:19 06/05/18 05:19 06/05/18 05:19 06/05/18 05:19 - Constitutional no acute distress, average body habitus - Routine Abdominal Exam Present: soft, normoactive bowel sounds - Routine Rectal Exam Digital: Present: normal inspection - Routine Exam External: Present: normal urethra appearance, lacerations Perineal: Present: Intact (no blood noted during exam) - Urinary Catheter Management Straight Cath placed during this visit: yes Urethral indwelling: No Insertion date: 06/04/18 Insertion time: 22:15 Results - Labs CBC & Chem 7: 06/05/18 07:27 06/05/18 07:27 Labs: Laboratory Results - last 24 hr 06/04/18 06/04/18 06/04/18 22:10 22:10 22:10 CBC w Diff Slide review pending WBC 22.1 H RBC 3.73 L Hgb 12.6 Hct 36.0 MCV 96.5 MCH 33.8 MCHC 35.0 RDW 12.5 Plt Count 269 MPV 9.0 Neut % (Auto) 88.1 H Lymph % (Auto) 9.3 [place] % (Auto) 1.6 Eos % (Auto) 0.2 Baso % (Auto) 0.8 Neut # (Auto) 19.4 H Lymph # (Auto) 2.1 [place] # (Auto) 0.4 Eos # (Auto) 0.0 Baso # (Auto) 0.2 WBC Differential . Diff Scan Auto diff confirmed Differential Comment . Sodium 140 Potassium 3.3 L Chloride 108 H Carbon Dioxide 22.1 Anion Gap 10 BUN 6 L Creatinine 0.68 Estimated GFR Greater than 89 Random Glucose 98 Calcium 8.6 Beta HCG, Quant 6928 H Urine Color Urine Clarity Urine pH Ur Specific [place] Urine Protein Urine Glucose (UA) Urine Ketones Urine Occult Blood Urine Nitrate Urine Bilirubin Urine Urobilinogen Ur Leukocyte Esterase Urine RBC Urine WBC Ur Squamous Epith Cells Urine Mucus Micro UA Comment Urine Culture Comments Blood Type O Negative Antibody Screen Not Reportable Ab Screen Tube Method Positive H Antibody Identification Blood Bank Comment 06/04/18 06/05/18 06/05/18 22:32 05:05 07:27 CBC w Diff Auto diff final WBC 15.2 H RBC 3.31 L Hgb 11.0 L Hct 32.9 L MCV 99.4 MCH 33.1 MCHC 33.3 RDW 12.2 Plt Count 197 MPV 8.5 Neut % (Auto) 78.2 H Lymph % (Auto) 16.8 [place] % (Auto) 4.3 Eos % (Auto) 0.5 Baso % (Auto) 0.2 Neut # (Auto) 11.8 H Lymph # (Auto) 2.6 [place] # (Auto) 0.7 Eos # (Auto) 0.1 Baso # (Auto) 0.0 WBC Differential . Diff Scan Differential Comment . Sodium Potassium Chloride Carbon Dioxide Anion Gap BUN Creatinine Estimated GFR Random Glucose Calcium Beta HCG, Quant Urine Color Yellow Urine Clarity Slightly cloudy Urine pH 7.0 Ur Specific [place] 1.015 Urine Protein Trace Urine Glucose (UA) Negative Urine Ketones 40 H Urine Occult Blood Trace Urine Nitrate Negative Urine Bilirubin Negative Urine Urobilinogen 0.2 Ur Leukocyte Esterase Negative Urine RBC 0-3 Urine WBC 0-5 Ur Squamous Epith Cells 0-5 Urine Mucus Many H Micro UA Comment Culture not ind Urine Culture Comments Culture not ind Blood Type Antibody Screen Ab Screen Tube Method Antibody Identification Passive Anti-D due to Rhogam Blood Bank Comment 06/05/18 07:27 CBC w Diff WBC RBC Hgb Hct MCV MCH MCHC RDW Plt Count MPV Neut % (Auto) Lymph % (Auto) [place] % (Auto) Eos % (Auto) Baso % (Auto) Neut # (Auto) Lymph # (Auto) [place] # (Auto) Eos # (Auto) Baso # (Auto) WBC Differential Diff Scan Differential Comment Sodium 139 Potassium 3.6 Chloride 108 H Carbon Dioxide 23.5 Anion Gap 8 BUN 4 L Creatinine 0.47 L Estimated GFR Greater than 89 Random Glucose 93 Calcium 7.6 L D Beta HCG, Quant Urine Color Urine Clarity Urine pH Ur Specific [place] Urine Protein Urine Glucose (UA) Urine Ketones Urine Occult Blood Urine Nitrate Urine Bilirubin Urine Urobilinogen Ur Leukocyte Esterase Urine RBC Urine WBC Ur Squamous Epith Cells Urine Mucus Micro UA Comment Urine Culture Comments Blood Type Antibody Screen Ab Screen Tube Method Antibody Identification Blood Bank Comment - Imaging Impressions Pelvis Ultrasound 06/05/18 00:00 CONCLUSION: 1. No definite intrauterine gestational sac. 2. Complex 4.5 cm endometrial collection extending towards the lower uterine segment which may reflect hematoma.
[2018-06-05] MEDS ORDERED: metroNIDAZOLE 500 MG Tablet PO SCH (12:00)
== END 2018-06-05 13:08 | disposition home or self-care (01) ==
LOC: PH3 21:41 → PHEDA 21:41 → PHED 21:41 → PHEDA 06-05 01:10 → PH3 06-05 01:15
PROVIDERS: ADMIT Obstetrics & Gynecology; ATTEND Obstetrics & Gynecology